=== PATIENT | male | born 1945 ===

== ENCOUNTER → 2016-08-10 | Outpatient (CLI) | payer OTHER | LOC: BHLMT 14:30 | PROVIDERS: ATTEND Internal Medicine Cardiovascular Disease | DX: R06.02 Shortness of breath (principal); R63.5 Abnormal weight gain; R60.9 Edema, unspecified; E66.01 Morbid (severe) obesity due to excess calories; G47.30 Sleep apnea, unspecified | CPT/HCPCS: 93005-PO ==

== ENCOUNTER → 2016-08-18 | Outpatient (CLI) | payer OTHER | LOC: BHLMT 15:30 | PROVIDERS: ATTEND Internal Medicine Cardiovascular Disease | DX: R06.00 Dyspnea, unspecified (principal); R60.9 Edema, unspecified | CPT/HCPCS: 93306-PO ==

== ENCOUNTER → 2018-06-16 | Outpatient (CLI) | payer OTHER | LOC: BHLMT 10:00 | PROVIDERS: ATTEND Internal Medicine Interventional Cardiology | DX: R06.02 Shortness of breath (principal); I77.810 Thoracic aortic ectasia | CPT/HCPCS: 93306-PO ==